=== PATIENT | male | born 1965 | race Caucasian/White ===

== ENCOUNTER 2017-08-12 11:19 | Day surgery (SDC) | payer BC ==
--- NOTE | 2017-07-21 11:28 | HP ---
DATE OF ADMISSION: 08/12/2017 DATE OF DICTATION: 06/23/2017 REASON FOR ADMISSION: Left inguinal hernia. BRIEF HISTORY: This is a 51-year-old gentleman who has a bulge and lump in his left groin. He has had this for at least 2 months now and he states that he has no pain, but occasionally does feel it when he does any type of lifting activities. He has had no change in bowel habits. Due to the size of the mass in the left groin, the patient wishes to have this repaired. PAST MEDICAL HISTORY: No coronary artery disease, hypertension, or diabetes. PAST SURGICAL HISTORY: None. MEDICATIONS: None. ALLERGIES: None. 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 He does not smoke, nor does he drink. PHYSICAL EXAMINATION: Lungs: Clear. Heart: Regular. Abdomen: Soft, nontender, nondistended. Genitourinary: He has a left inguinal hernia of moderate to large size. It is reducible in the supine position. Left scrotum and testicles within normal limits. On the right side, I suspect he has a small right inguinal hernia; however, he could have just a fair amount of laxity and weakness in the right groin. The right scrotum and testicle is within normal limits. IMPRESSION/PLAN: Left inguinal hernia, suspect right inguinal hernia. This is a 51-year-old gentleman who has a large mass in his left groin. It is bothering him and he now wishes to have this repaired. On physical examination I suspect that he may have a small right inguinal hernia as well and therefore, I will examine the right side at the time of laparoscopy. If a hernia is noted, it will be repaired. If no hernia is seen, a piece of mesh will be left in the direct inguinal space for reinforcement. Indications, alternatives, and complications of the procedure were discussed at length. Questions answered. We will plan on obtaining written consent the day of surgery. IAN FOY M.D. [id number]
[2017-08-10 12:16] VITALS: BMI 23.5
[2017-08-12] MEDS ORDERED: TAMSULOSIN HCL 0.4 MG CAP.ER.24H (FP) ONE (12:19)
[2017-08-12] MEDS ORDERED: ceFAZolin SODIUM 1 GM VIAL ONE (12:19)
[2017-08-12] MEDS ORDERED: MIDAZOLAM HCL 2 MG/2 ML SINGLE DOSE VIAL ONE (13:09)
[2017-08-12] MEDS ORDERED: ONDANSETRON 4 MG/2 ML VIAL ONE ×2 (13:09→15:19)
[2017-08-12] MEDS ORDERED: DEXAMETHASONE SOD PHOSPHATE 4 MG/1 ML VIAL ONE (13:09)
[2017-08-12] MEDS ORDERED: fentaNYL CITRATE 250 MCG/5 ML VIAL ONE (13:09)
[2017-08-12] MEDS ORDERED: PROPOFOL 20 ML ONE (13:09)
[2017-08-12] MEDS ORDERED: ROCURONIUM BROMIDE 50 MG/5 ML VIAL ONE (13:09)
[2017-08-12] MEDS ORDERED: ceFAZolin SODIUM 1 GM VIAL IVPB ONE (14:35)
[2017-08-12] MEDS ORDERED: ePHEDrine SULFATE 50 MG/1 ML AMPULE ONE (14:53)
[2017-08-12] MEDS ORDERED: NEOSTIGMINE METHYLSULFATE 0.5 MG/ML - 10 ML MDV ONE (15:07)
[2017-08-12] MEDS ORDERED: PROMETHAZINE HCL 25 MG/1 ML VIAL IVPB PRN (15:31)
[2017-08-12] MEDS ORDERED: oxyCODONE HCL 5 MG TABLET PO PRN (15:34)
[2017-08-12] MEDS ORDERED: KETOROLAC TROMETHAMINE 30 MG/1 ML VIAL ONE (15:41)
[2017-08-12] MEDS ORDERED: LACTATED RINGERS SOLUTION 1,000 ML IV SCH (15:45)
[2017-08-12] MEDS ORDERED: KETOROLAC TROMETHAMINE 30 MG/1 ML VIAL IVPUSH ONE (16:00)
[2017-08-12 16:53] VITALS: TEMP 97.8
[2017-08-12 17:05] VITALS: PULSE 80
[2017-08-12 17:52] VITALS: BP 119/64
--- NOTE | 2017-08-13 12:33 | OP ---
DATE OF OPERATION: 08/12/2017 PREOPERATIVE DIAGNOSIS: Left inguinal hernia. POSTOPERATIVE DIAGNOSES: Left indirect inguinal hernia, right indirect inguinal hernia, attenuation of direct inguinal floor, right side. PROCEDURE: Bilateral laparoscopic inguinal herniorrhaphy with mesh. SURGEON: Albert Molina MD LIFE ENRICHMENT ASSISTANT: Jaydon Hoover MD ANESTHESIA: Mario Galeas MD ESTIMATED BLOOD LOSS: Minimal. SPECIMEN: None. INDICATION FOR PROCEDURE: This is a 52-year-old gentleman with a minimum of a 2-month history of having discomfort and a large lump in the left groin. He is here today for his hernia repair. DESCRIPTION OF PROCEDURE: Patient identified, appropriately positioned on the operating room table. After placement of general anesthesia, the abdomen was prepped and draped in the usual sterile fashion with ChloraPrep. An infraumbilical incision was made and deepened through the subcutaneous tissue. The fascia and the rectus muscle left divided sharply. The muscles split under direct vision. Dissector balloon followed by structural balloon placed. The following structures on the left side identified: Pubic tubercle, Marquis ligament, inferior epigastric vessels, spermatic cord, and lateral abdominal wall. During this dissection, he had no attenuation of the direct inguinal floor, no direct hernia. He had an indirect hernia sac that was very large. The sac reduced back in the preperitoneal space with blunt dissection. A 4.5 and 6 piece of Versatex mesh was keel placed through the suprapubic port site. The mesh wrapped around the cord structures laterally to reconstruct the internal ring. Laterally, the mesh anchored to the anterior abdominal wall and lateral abdominal wall. Medially, the mesh anchored to the anterior abdominal wall, pubic tubercle and Marquis ligament. Upon completion of the left side, similar structures on the right side were identified. On the right side, the patient was noted to have attenuation of the direct inguinal floor, no hernia. He had an indirect inguinal hernia sac of small size. That reduced back in the preperitoneal space. Another 4.5 x 6 piece of Versatex mesh keel placed through the suprapubic port site. The mesh wrapped around the cord structures laterally to reconstruct the internal ring. Laterally, the mesh anchored to the anterior abdominal wall and lateral abdominal wall. Medially, the mesh well overlapped in the midline, anchored to the anterior abdominal wall, pubic tubercle, and Marquis ligament. All anterior abdominal wall and lateral abdominal anchors placed under direct counter-palpation. The mesh used was Versatex. The anchoring system was AbsorbaTack. The fascia at both port sites reapproximated with 3-0 Vicryl suture. All skin closed with 4-0 subcuticular Biosyn, followed by Dermabond. At the conclusion of this case, sponge and needle counts were correct. ATTESTATION: A brief operative note handwritten on the preprinted form. [facility] queried prior to giving any narcotics. cc: MD ALBERT Jenkins [facility], M.D. [id number]
== END 2017-08-12 18:01 | disposition home or self-care (01) ==
LOC: JASU-SURG 11:19
PROVIDERS: ATTEND Surgery
PROC: 0YUA4JZ Supplement Bilateral Inguinal Region with Synthetic Substitute, Percutaneous Endoscopic Approach (ICD-10-PCS; principal; 2017-08-12 13:00)
DX: K40.20 Bilateral inguinal hernia, without obstruction or gangrene, not specified as recurrent (principal)
CPT/HCPCS: 94760